=== PATIENT | male | born 1970 | race Hispanic/Latino ===

== ENCOUNTER 2018-02-06 16:54 | Emergency (ER) | payer SELFPAY ==
[2018-02-06 16:59] VITALS: BP 184/101
--- NOTE | 2018-02-06 17:15 | Emergency Department Report ---
HPI - General Chief Complaint: Wound/Laceration Time Seen by Provider: 02/06/18 17:06 - HPI HPI: Room 21 The patient is a 47-year-old male presenting with a chief complaint of finger laceration. The patient states he was working with a saw and accidentally cut his left index and middle finger. The patient states he is right-handed. The patient states she is certain his tetanus status is up-to-date. The patient gives his pain a score of 2-3/10 Location: [See above] Duration: Just prior to arrival Quality: Pain Severity: 2-3/10 Modifying factors: [see above] Context: [see above] Mode of transportation: [not driving] ED Past Medical Hx - Past Medical History Previous Medical History?: No Hx Asthma: Yes - Surgical History Past Surgical History?: No Additional Surgical History: Tear duct surgery, left ankle surgery, knee surgery - Social History Smoking Status: Never Smoker Substance Use Type: Alcohol - Medications Home Medications: Home Medications Medication Instructions Recorded Confirmed Last Taken Type HYDROcodone/APAP 5-325 [[place] 1 - 2 each PO Q6HR PRN #10 tablet 02/06/18 Unknown Rx 5/325] Ibuprofen [Motrin 800 MG tab] 800 mg PO Q8HR PRN #20 tablet 02/06/18 Unknown Rx Sulfamethoxazole/Trimethoprim 1 each PO BID #14 tablet 02/06/18 Unknown Rx [Bactrim DS TAB] ED Review of Systems ROS: Stated complaint: CUT FINGER Other details as noted in HPI Skin: other (laceration) Physical Exam - Physical Exam Vital Signs: Vital Signs 02/06/18 16:56 Temperature 98.6 F Pulse Rate 69 Respiratory 18 Rate Blood Pressure 184/101 O2 Sat by Pulse 100 Oximetry Physical Exam: GENERAL: The patient is well-developed well-nourished male lying on stretcher not appearing to be in acute distress. [] HEENT: Normocephalic. Atraumatic. Extraocular motions are intact. Patient has moist mucous membranes. NECK: Trachea midline CHEST/LUNGS: There is no respiratory distress noted. HEART/CARDIOVASCULAR: Regular. There is no tachycardia. There is no gallop rub or murmur. ABDOMEN: Abdomen is soft, nontender. Patient has normal bowel sounds. There is no abdominal distention. SKIN: There is an approximately 3 cm laceration to the palmar aspect of the mid left index finger and 2 cm laceration of the palmar aspect of the distal left middle finger. There is no edema. There is no diaphoresis. NEURO: The patient is awake, alert, and oriented. The patient is cooperative. The patient has normal speech MUSCULOSKELETAL: There is no tenderness or deformity. There is no limitation range of motion. Patient able to flex left index finger and middle finger at both IP joints. Normal sensation to light touch ED Course Vital Signs 02/06/18 16:56 Temperature 98.6 F Pulse Rate 69 Respiratory 18 Rate Blood Pressure 184/101 O2 Sat by Pulse 100 Oximetry - Nerve Block Consent Obtained: verbal consent Time Out Performed: No Local Anesthetic Used: Marcaine 0.25% Amount of anesthesia used: 10 (anesthetic was lidocaine 1% and Marcaine mixed 50 :50) Side: left Nerve Blocks: digital Procedure Successful: Yes Complications: none Patient Tolerated Procedure: well Additional Comments: Digital block of the left index finger and left middle finger performed ED Medical Decision Making - Lab Data Result diagrams: 02/06/18 17:04 - Radiology Data Radiology results: image reviewed (left hand x-ray) interpreted by me: Left hand x-ray-no acute fracture - Medical Decision Making CONSTANTIN Penaloza to perform laceration repair - Differential Diagnosis finger laceration Critical care attestation.: If time is entered above; I have spent that time in minutes in the direct care of this critically ill patient, excluding procedure time. ED Disposition Clinical Impression: Laceration of left index finger, Laceration of left middle finger Disposition: DC-01 TO HOME OR SELFCARE Is pt being admited?: No Does the pt Need Aspirin: No Condition: Stable Instructions: Suture Care (ED), Laceration (ED) Additional Instructions: Sutures need to remain in place for 7 days. You may return to the emergency department or follow-up with her primary physician to have them removed. Return to the emergency department immediately should you develop worsening symptoms, fever, inability to tolerate food or liquid or any other concerns. Prescriptions: HYDROcodone/APAP 5-325 [[place] 5/325] 1 - 2 each PO Q6HR PRN #10 tablet PRN Reason: Pain Ibuprofen [Motrin 800 MG tab] 800 mg PO Q8HR PRN #20 tablet PRN Reason: Pain Sulfamethoxazole/Trimethoprim [Bactrim DS TAB] 1 each PO BID #14 tablet Referrals: PRIMARY CARE, [Referring] - 3-5 Days Time of Disposition: 18:37
[2018-02-06 17:24] LABS: Basophils # (Auto) 0.1 K/mm3 (0.0-0.1); Basophils % (Auto) 1.1 % (0.0-1.8); Eosinophils # (Auto) 0.3 K/mm3 (0.0-0.4); Eosinophils % (Auto) 4.9 % (0.0-4.3); Hematocrit 43.7 % (35.5-45.6); Lymphocytes # (Auto) 2.4 K/mm3 (1.2-5.4); Lymphocytes % (Auto) 41.8 % (13.4-35.0); Mean Corpuscular HGB Conc 32 % (32-34); Mean Corpuscular Hemoglobin 27 pg (28-32); Mean Corpuscular Volume 85 fl (84-94); Monocytes # (Auto) 0.6 K/mm3 (0.0-0.8); Monocytes % (Auto) 10.8 % (0.0-7.3); Platelet Count 237 K/mm3 (140-440); Red Blood Count 5.14 M/mm3 (3.65-5.03); Red Cell Distribution Width 14.1 % (13.2-15.2)
[2018-02-06] MEDS ORDERED: XYLOCAINE 2% INFILTRATI ONE ×2 (17:28→17:29)
[2018-02-06] MEDS ORDERED: MARCAINE 0.25% INFILTRATI ONE (17:31)
[2018-02-06] MEDS ORDERED: NACL 0.9% 500 ML IR ONE (17:32)
[2018-02-06] MEDS ORDERED: NORCO 5/325 PO ONE (17:36)
--- NOTE | 2018-02-06 19:09 | Emergency Department Report ---
Blank Doc - Documentation Documentation: Procedure note 9 sutures placed left distal middle finger tuft 4 sutures placed left distal index finger tuft 13 4-0 nylon sutures were placed total. Sutures to be removed in proximate 10 days Covered with gauze and finger splints afterward Dr. Scales noted
--- NOTE | 2018-02-06 19:40 | XRay Report ---
FINAL REPORT EXAM: XR HAND 3+V LT HISTORY: cut IF MF with saw TECHNIQUE: Three views left hand Comparison: None FINDINGS: There is dressing obscuring some of the detail. No fracture or dislocation. There is a linear 2 millimeter radiopaque foreign body dorsal to the 2nd digit middle phalanx. There is a 1 millimeter density along the radial aspect of the 3rd digit tuft which is not definitely calcified. It is seen on the oblique view only. There is a notch out of the dorsal 4th tuft with associated tuft proliferation which may be related to subungual exostosis. IMPRESSION: Radiopaque 2 millimeter foreign body dorsal to the 2nd digit middle phalanx. Dressing somewhat obscures the tip of the 3rd digit. Oblique image demonstrates 1 millimeter density along the radial aspect of the 3rd digit tuft which is not definitely calcified seen on the oblique view only. Recommend repeat with the dressing removed. Fourth digit subungual exostosis. No acute fracture or dislocation.
== END 2018-02-06 23:32 | disposition home or self-care (01) ==
LOC: ED 16:54
DX: S61.211A Laceration without foreign body of left index finger without damage to nail, initial encounter (principal); S61.213A Laceration without foreign body of left middle finger without damage to nail, initial encounter; J45.909 Unspecified asthma, uncomplicated; Z88.0 Allergy status to penicillin; W27.8XXA Contact with other nonpowered hand tool, initial encounter; Y93.89 Activity, other specified; Y99.0 Civilian activity done for income or pay; Y92.69 Other specified industrial and construction area as the place of occurrence of the external cause
CPT/HCPCS: 36415; 85025

== ENCOUNTER 2018-02-11 19:20 | Emergency (ER) | payer SELFPAY ==
[2018-02-11 19:27] VITALS: BP 167/103
--- NOTE | 2018-02-12 02:34 | Emergency Department Report ---
Suture/Staple Removal - HPI Chief Complaint: Laceration/Recheck/Suture Stated Complaint: SUTURE REMOVAL Wound Location: left third and fourth digit ED Review of Systems ROS: Stated complaint: SUTURE REMOVAL Other details as noted in HPI Comment: All other systems reviewed and negative ED Past Medical Hx - Past Medical History Hx Asthma: Yes - Surgical History Past Surgical History?: Yes Additional Surgical History: Tear duct surgery, left ankle surgery, knee surgery - Social History Smoking Status: Never Smoker Substance Use Type: None - Medications Home Medications: Home Medications Medication Instructions Recorded Confirmed Last Taken Type HYDROcodone/APAP 5-325 [[place] 1 - 2 each PO Q6HR PRN #10 tablet 02/06/18 Unknown Rx 5/325] Ibuprofen [Motrin 800 MG tab] 800 mg PO Q8HR PRN #20 tablet 02/06/18 Unknown Rx Sulfamethoxazole/Trimethoprim 1 each PO BID #14 tablet 02/06/18 Unknown Rx [Bactrim DS TAB] Suture Removal Exam - Exam General: Vital signs noted. No distress. Alert and acting appropriately. Wound: Yes Drainage (clear), Yes Wound Dehiscence (not quite healed), No Pathologic Erythema, No Tenderness, No Pus Other Systems: All other systems reviewed and are unremarkable. ED Course Vital Signs 02/11/18 19:23 Temperature 98 F Pulse Rate 69 Respiratory 16 Rate Blood Pressure 167/103 O2 Sat by Pulse 97 Oximetry ED Recheck MDM - Differential Diagnosis Wound Recheck - Medical Decision Making Patient has been evaluated for this provider aspect. I discussed the patient that his sutures are not quite ready to be removed. I discussed the patient to return in 5 days to have sutures removed. Patient verbalized understanding. Critical care attestation.: If time is entered above; I have spent that time in minutes in the direct care of this critically ill patient, excluding procedure time. ED Disposition Clinical Impression: Encounter for re-check of laceration wound Disposition: DC-01 TO HOME OR SELFCARE Is pt being admited?: No Does the pt Need Aspirin: No Condition: Stable Additional Instructions: Please keep wound clean and dry. Please continue with antibiotics. Please return in 5 days for suture removal. Referrals: JESI SEWELL MD [Primary Care Provider] - 3-5 Days
== END 2018-02-11 19:35 | disposition home or self-care (01) ==
LOC: ED 19:20
DX: Z48.01 Encounter for change or removal of surgical wound dressing (principal); J45.909 Unspecified asthma, uncomplicated